=== PATIENT | female | born 2005 | race Caucasian/White ===

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

== ENCOUNTER 2024-01-03 22:31 | Outpatient (CLI) | payer BC, SELFPAY ==
[2024-01-03] VITALS (7 sets, daily range): BP systolic 114–140; BP diastolic 61–70; PULSE 98–111; O2SAT 98
[2024-01-03 23:38] LABS: Hematocrit 33.3 % (33.0-51.0); Mean Corpuscular HGB Conc 33 gm/dL (32-36); Mean Corpuscular Hemoglobin 30 pg (26-34); Mean Corpuscular Volume 91 fL (80-100); Platelet Count* 316 K/uL (140-440); Red Blood Count 3.68 m/uL (4.00-5.20); White Blood Count* 15.92 K/uL (4.50-11.00)
[2024-01-03 23:43] LABS: Slide Review Reflex No
[2024-01-03 23:53] LABS: Aspartate Amino Transferase* 20 U/L (12-35); Creatinine* 0.6 mg/dL (0.5-1.5); Estimated Glomerular Filt Rate 132 ml/min
[2024-01-03 23:54] LABS: Alanine Aminotransferase* 21 U/L (4-35); Blood Urea Nitrogen* 9 mg/dL (5-24); Total Protein Urine 37 mg/dL
[2024-01-03 23:55] LABS: Creatinine Urine 76.4 mg/dL
[2024-01-04 00:14] VITALS: BP 118/70; PULSE 100
[2024-01-04 00:29] VITALS: BP 119/66; PULSE 109
[2024-01-04 00:44] VITALS: BP 121/63; PULSE 114
== END 2024-01-04 00:50 | disposition home or self-care (01) ==
LOC: OB OUT 22:31 → OB 22:31
PROVIDERS: PCP Family Medicine; Visit Provider Obstetrics & Gynecology
DX: O10.912 Unspecified pre-existing hypertension complicating pregnancy, second trimester (principal); Z3A.22 22 weeks gestation of pregnancy
CPT/HCPCS: 36415; 82565; 82570; 84156; 84450; 84460; 84520; 85027; G0463

== ENCOUNTER 2024-02-13 13:47 | Outpatient (CLI) | payer BC, SELFPAY ==
--- NOTE | 2024-02-13 14:00 | CRLHL7_ITS ---
For Patients: As a result of the Century Cures Act, medical imaging exams and procedure reports are released immediately into your electronic medical record. You may view this report before your referring provider. If you have questions, please contact your health care provider. INDICATION: Third trimester scan, evaluate growth. Pre-existing hypertension. COMPARISON: none TECHNIQUE: Real time schneider scale imaging of the fetus was performed. FINDINGS: Sonographic imaging demonstrates a single living intrauterine gestation. Fetus demonstrates a regular cardiac rate of 145 beats per minute. Fetus has a transverse position, head maternal right. The placenta lies anterior. Amniotic fluid volume appears normal and there is a single deepest vertical pocket: 6.2 cm. The estimated weight is 1421gm which lies at the 92nd %. BPD 59th percentile. HC 84th percentile. AC 94th percentile. FL 57th percentile. The HC/AC ratio measures 1.06 range (0.98-1.20). IMPRESSION: Sonographic gestational age 29 weeks 3 days and sonographic due date 04/27/2024. Sonographic age 10 days ahead of the clinical age. Estimated weight 92nd percentile. Abdominal circumference 94th percentile. Dictated by Tj Goss MD @ 02/14/2024 12:18:08 PM (Electronically Signed)
== END 2024-02-13 13:48 | disposition home or self-care (01) ==
LOC: US 13:47
PROVIDERS: PCP Family Medicine; Visit Provider Obstetrics & Gynecology
DX: O10.913 Unspecified pre-existing hypertension complicating pregnancy, third trimester (principal); O36.63X0 Maternal care for excessive fetal growth, third trimester, not applicable or unspecified; Z3A.29 29 weeks gestation of pregnancy
CPT/HCPCS: 76816; 86592

== ENCOUNTER 2024-02-14 16:17 | Emergency (ER) | payer BC, SELFPAY ==
[2024-02-14 16:24] VITALS: BP 118/83; PULSE 111; RESP 18; TEMP 35.9; O2SAT 98; BMI 41.5
--- NOTE | 2024-02-14 17:11 | ED_ITS ---
HPI - Syncope General Chief Complaint: Syncope/Fainted Stated Complaint: Preg 28 weeks+1, vomiting, fainted this AM Time Seen by Provider: 02/14/24 16:22 History of Present Illness HPI narrative: This 19-year-old female comes in because of a syncopal event that occurred prior to arrival. She states that she is about 28 weeks and has been having some episodes of lightheadedness over the past 4-6 weeks. She was taking labetalol but this was discontinued a few weeks ago because of lightheadedness episodes. She was also having hyperemesis but none for the past couple weeks until today when she felt lightheaded when shopping. She laid down on the floor and felt better. She got up and again felt lightheaded and sat down in a chair at which time she had a brief loss of consciousness. She is not report any chest pain. She did have an OB checkup yesterday and had labs done with reassuring results. She states that she feels back to normal at this time. She does not report any chest pain or shortness of breath. Related Data Home Medications ?Medication ?Instructions ?Recorded ?Confirmed aripiprazole 10 mg tablet 10 mg PO DAILY 10/05/23 02/14/24 docosahexaenoic acid 200 mg mg PO 10/05/23 02/13/24 capsule ( DHA) sertraline 100 mg tablet 150 mg PO DAILY 01/16/24 02/14/24 aspirin 81 mg tablet,delayed 81 mg PO DAILY 02/14/24 02/14/24 release (Adult Aspirin Regimen) Previous Rx's ?Medication ?Instructions ?Recorded ondansetron HCl 4 mg tablet 4 mg PO Q6H PRN nausea and 01/01/24 vomiting #20 tabs Allergies Allergy/AdvReac Type Severity Reaction Status Date / Time No Known Drug Allergies Allergy Verified 02/14/24 16:33 Review of Systems Status of ROS: Reports: 10 or more systems reviewed and unremarkable except as noted in History and below Narrative: Constitutional: No fevers. Eyes: No discharge. No vision changes. HENT: No congestion, no sore throat, no ear pain. Cardiovascular: No chest pain, no palpitations. Respiratory: No shortness of breath, no wheezes, no cough. Gastrointestinal: No abdominal pain, no vomiting, no diarrhea. Genitourinary: No dysuria, no hematuria. Musculoskeletal: Normal range of motion. Skin: No rashes, no pruritis. Neurological: No weakness, sensory change, speech change. Lightheadedness episodes as described above. Endo/Heme/Allergies: No bruising or bleeding. No polydipsia. Pysch: no suicidality, no anxiety, no insomnia. All other systems reviewed and are negative. PFSH PFS Social History What is your current living situation?: I presently have a place to live In the past 12 months, utilities in danger of being shut off: no In past 12 months, lack of transportation kept you from medical appts, meetings, work, or getting things needed for daily living: no In the past 12 mos, have been you worried that your food would run out before you had money to buy more?: never true In the past 12 mos, the food you bought just didn't last and you didn't have money to buy more?: never true Smoking Status: Former smoker Do you use any of these nicotine containing products: None How often do you have a drink containing alcohol: never How often do you have six or more drinks on one occasion: Never AUDIT-C Alcohol total score: 0 Non-prescribed substance use: denies use How often does anyone, including family, friends and others, physically hurt you : never How often does anyone, including family, friends and others, insult or talk down to you: never How often does anyone, including family, friends and others, threaten you with harm: never How often does anyone, including family, friends and others, scream or curse at you: never Little interest or pleasure in doing things: several days Feeling down, depressed, or hopeless: several days Exam Narrative: Exam Narrative: Constitutional: Well-developed, well-nourished, no acute distress. HEENT: Normocephalic, atraumatic. Neck: Normal range of motion. Nontender. Supple. Heart: Regular. No murmurs. Normal rate. Intact distal pulses. The patient's heart rate was initially elevated at 100 Cruz beats per minute but at the time of my visit her heart rate was around 75-80 beats per minute at rest. Lungs: Clear to auscultation. No chest discomfort. No wheezes, rhonchi, or rales. Abdomen: Normal bowel sounds. Gravid. Nontender. No rebound tenderness. Genitalia: Deferred. Back: No midline tenderness. Normal range of motion. Extremities: Normal range of motion. No injury. Skin: Intact. No rash. Warm. No erythema or pallor. Neurologic: No altered sensation. No weakness. Alert and oriented. Psychiatric: No suicidality. No anxiety or depression. No insomnia. Nursing notes and vitals signs are reviewed. Const: Vital Signs, click to edit/add: Vital Signs - 24 hr 02/14/24 16:24 Temperature 96.6 F L Pulse Rate [Right Pulse Oximeter] 111 H Respiratory Rate 18 Blood Pressure [Ri ght Upper Arm] 118/83 Pulse Oximetry 98 Oxygen Delivery Me thod Room Air Course Vital Signs Vital signs: Initial Vital Signs Temperature 96.6 F L 02/14/24 16:24 Temperature Source Temporal Artery Scan 02/14/24 16:24 Pulse Rate 111 H 02/14/24 16:24 Pulse Rhythm Regular 02/14/24 16:24 Respiratory Rate 18 02/14/24 16:24 Blood Pressure 118/83 02/14/24 16:24 Blood Pressure Mean 94 02/14/24 16:24 Blood Pressure Position Sitting 02/14/24 16:24 Pulse Oximetry 98 02/14/24 16:24 Oxygen Delivery Method Room Air 02/14/24 16:24 Vital Signs Temperature 96.6 F L 02/14/24 16:24 Pulse Rate 111 H 02/14/24 16:24 Respiratory Rate 18 02/14/24 16:24 Blood Pressure 118/83 02/14/24 16:24 Pulse Oximetry 98 02/14/24 16:24 Oxygen Delivery Method Room Air 02/14/24 16:24 Temperature 96.6 F L 02/14/24 16:24 Pulse Rate 111 H 02/14/24 16:24 Respiratory Rate 18 02/14/24 16:24 Blood Pressure 118/83 02/14/24 16:24 Pulse Oximetry 98 02/14/24 16:24 Oxygen Delivery Method Room Air 02/14/24 16:24 MDM - Syncope MDM Narrative Medical decision making narrative: This patient has been having some episodes of lightheadedness and today resulted in brief syncope. Currently she feels back to normal and has normal vital signs. I did discuss various contributors toward decrease apply of oxygen and glucose to the brain that can cause feeling of lightheadedness and may result in syncope. The patient is 28 weeks and the demands of a growing baby certainly contribute to her cardiovascular requirements. She states that she is taking plenty of food and drink and currently is not on any antihypertensive her rate-controlling medicines. She did wear a Zio patch which returned with normal results and no findings of concern. She had an ultrasound done yesterday of the baby and had labs done. I offered to recheck labs and give IV fluids but the patient declined these in a process of shared decision making. IA attempted to provide some insight as to what may be causing lightheaded episodes as she describes them. It does seem that her position is a contributor as usually she is in a standing position when these episodes occur. She is following the plan of her care with the OBGYN physician and clinic. She is okay to be discharged home. Discharge Plan Discharge Clinical Impression: Syncope, Patient Disposition: Home w/ Parent or Adult Condition: Improved Additional Instructions: Continue current plans. Follow up with OBGYN clinic as scheduled and needed. Return if worsening. Prescriptions: No Action aripiprazole 10 mg tablet 10 mg PO DAILY DHA 200 mg capsule PO ondansetron HCl 4 mg tablet 4 mg PO Q6H PRN (Reason: nausea and vomiting) Qty: 20 1RF sertraline 100 mg tablet 150 mg PO DAILY aspirin [Adult Aspirin Regimen] 81 mg tablet,delayed release (DR/EC) 81 mg PO DAILY Follow Up/Referrals: Mary Villegas MD [Primary Care Provider] - Stand Alone Forms: [employer] Info Instructions
== END 2024-02-14 17:31 | disposition home or self-care (01) ==
LOC: ED 17:24
PROVIDERS: Emergency Provider Emergency Medicine Emergency Medical Services; PCP Family Medicine
DX: O26.893 Other specified pregnancy related conditions, third trimester (principal); R55 Syncope and collapse; Z3A.28 28 weeks gestation of pregnancy
CPT/HCPCS: 99282; 99283; 99284

== ENCOUNTER 2024-02-29 08:00 | Outpatient (CLI) | payer BC, SELFPAY | END 2024-02-29 08:01 | disposition home or self-care (01) | LOC: NFLDREF 03-02 07:09 | PROVIDERS: PCP Family Medicine; Referring Provider Family Medicine; Visit Provider Obstetrics & Gynecology | DX: O99.210 Obesity complicating pregnancy, unspecified trimester (principal); R73.09 Other abnormal glucose | CPT/HCPCS: 82951; 82952 ==

== ENCOUNTER 2024-03-12 12:57 | Outpatient (CLI) | payer BC, SELFPAY ==
--- NOTE | 2024-03-12 13:00 | CRLHL7_ITS ---
For Patients: As a result of the Century Cures Act, medical imaging exams and procedure reports are released immediately into your electronic medical record. You may view this report before your referring provider. If you have questions, please contact your health care provider. INDICATION: CHTN TECHNIQUE: Real time schneider scale imaging of the fetus was performed. COMPARISON: 02.13.24 FINDINGS: Sonographic imaging demonstrates a single living intrauterine gestation. Fetus demonstrates a regular cardiac rate of 144 beats per minute. Fetus has a vertex position. The placenta lies anteriorly. Amniotic fluid volume appears normal and there is a single deepest pocket of 5.9 cm. The estimated weight is 2366gm which lies at the 95th %. On the prior OB ultrasound dated 02/13/2024 the estimated weight was at the 92nd percentile. BPD 87th percentile. HC 84th percentile. AC greater than 97th percentile. FL 54th percentile. The fetus was active and demonstrated normal breathing movements. There was normal flexion and extension of the trunk and extremities. IMPRESSION: Normal biophysical profile score 8/8. Sonographic gestational age 34 weeks 0 days and sonographic due date 04/23/2024. Sonographic age 2 weeks ahead of the clinical age. Estimated weight 95th percentile. Abdominal circumference greater than 97th percentile. Dictated by Tj Goss MD @ 03/14/2024 5:57:13 AM (Electronically Signed)
== END 2024-03-12 12:58 | disposition home or self-care (01) ==
LOC: US 12:57
PROVIDERS: PCP Family Medicine; Visit Provider Obstetrics & Gynecology
DX: O10.913 Unspecified pre-existing hypertension complicating pregnancy, third trimester (principal); Z3A.34 34 weeks gestation of pregnancy
CPT/HCPCS: 76816; 76819